=== PATIENT | male | born 1990 | race Hispanic/Latino ===

== ENCOUNTER 2022-10-07 17:56 | Emergency (ER) | payer BC ==
[~2022-10-07] VITALS: Ht 188 cm; Wt 106.6 kg
[2022-10-07 18:45] LABS: BASOPHILS % (AUTO) 0.4 % (0.0-5.0); EOSINOPHILS % (AUTO) 1.3 % (0.0-8.0); HEMATOCRIT 44.4 % (42-54); LYMPHOCYTES % (AUTO) 25.8 % (21.0-51.0); MEAN CORPUSCULAR HEMOGLOBIN 28.7 pg (27.0-33.0); MEAN CORPUSCULAR VOLUME 84.3 fL (79-99); MONOCYTES % (AUTO) 6.2 % (3.0-13.0); NEUTROPHILS % (AUTO) 65.9 % (40.0-77.0); PLATELET COUNT (AUTO) 265 K/uL (130-400); RED BLOOD CELL COUNT(AUTO) 5.27 MIL/uL (4.50-6.20); WHITE BLOOD COUNT (AUTO) 7.9 K/uL (4.8-10.8)
[2022-10-07 19:11] LABS: ALBUMIN 4.1 g/dL (3.5-5.0); POTASSIUM 3.8 mmol/L (3.5-5.1); TOTAL PROTEIN, SERUM 7.8 g/dL (6.0-8.3)
[2022-10-07 19:45] VITALS: BP 143/92
== END 2022-10-07 19:56 | disposition home or self-care (01) ==
LOC: EDH 17:56
DX: R07.89 Other chest pain (principal)
CPT/HCPCS: 36415; 71045; 80053; 83605; 84484; 85025; 93005

== ENCOUNTER 2022-11-01 17:43 | Emergency (ER) | payer BC ==
[2022-11-01 18:49] LABS: BASOPHILS % (AUTO) 0.5 % (0.0-5.0); EOSINOPHILS % (AUTO) 2.3 % (0.0-8.0); HEMATOCRIT 44.7 % (42-54); LYMPHOCYTES % (AUTO) 27.2 % (21.0-51.0); MEAN CORPUSCULAR HEMOGLOBIN 29.2 pg (27.0-33.0); MEAN CORPUSCULAR HGB CONC 34.2 g/dL (32.0-36.0); MEAN CORPUSCULAR VOLUME 85.3 fL (79-99); MONOCYTES % (AUTO) 6.5 % (3.0-13.0); NEUTROPHILS % (AUTO) 63.2 % (40.0-77.0); PLATELET COUNT (AUTO) 246 K/uL (130-400); RED BLOOD CELL COUNT(AUTO) 5.24 MIL/uL (4.50-6.20); RED CELL DISTRIBUTION WIDTH 12.9 % (11.0-15.5); WHITE BLOOD COUNT (AUTO) 6.1 K/uL (4.8-10.8)
[2022-11-01 19:04] LABS: CREATININE 0.9 mg/dL (0.5-1.5); POTASSIUM 3.9 mmol/L (3.5-5.1)
[2022-11-01 19:14] LABS: ALBUMIN 4.3 g/dL (3.5-5.0); TOTAL PROTEIN, SERUM 8.2 g/dL (6.0-8.3)
[2022-11-01 21:25] VITALS: BP 144/87
== END 2022-11-01 21:28 | disposition home or self-care (01) ==
LOC: EDH 17:43
DX: F41.9 Anxiety disorder, unspecified (principal); R07.9 Chest pain, unspecified; Z98.890 Other specified postprocedural states
CPT/HCPCS: 36415; 71045; 80053; 83605; 84484; 85025; 93005

== ENCOUNTER 2023-12-01 08:29 | Emergency (ER) | payer BC ==
[~2023-12-01] VITALS: Ht 188 cm; Wt 99.8 kg
[2023-12-01 08:35] VITALS: BP 157/82; PULSE 98; RESP 18; O2SAT 99
[2023-12-01] MEDS ORDERED: AMOX1TAB16 PO (09:01)
[2023-12-01] MEDS: DIPH,PERTUSS(ACELL),TET VAC/PF 0.5 ML VIAL IM ONE (09:34)
== END 2023-12-01 09:35 | disposition home or self-care (01) ==
LOC: EDH 08:29
DX: S81.831A Puncture wound without foreign body, right lower leg, initial encounter (principal); S81.832A Puncture wound without foreign body, left lower leg, initial encounter; Z98.890 Other specified postprocedural states; W54.0XXA Bitten by dog, initial encounter; Y93.89 Activity, other specified; Y92.89 Other specified places as the place of occurrence of the external cause; Y99.8 Other external cause status
CPT/HCPCS: 90471; 90715

== ENCOUNTER 2025-01-28 12:14 | Emergency (ER) | payer BC ==
[~2025-01-28] VITALS: Ht 188 cm; Wt 112.0 kg
[~2025-01-28 12:14] MED LIST: AMOX1TAB16 PO
--- NOTE | 2025-01-28 12:40 | NUR ---
PENDING GFR RESULTS, IV SITE, & CONSENT FOR CTA NECK
--- NOTE | 2025-01-28 12:50 | ERN ---
ED Note History of Present Illness Stated Complaint: NECK PAIN Chief Complaint: Neck Pain Time Seen by MD: 12:15 Time Seen by Midlevel: 12:15 Dictation: The Patient is a 34-year-old male with no significant past medical history who presents to the emergency department after being sent by his PCP for evaluation of left-sided neck pain for a week. Patient reports his provider is concerned with blocking of the carotid artery. Patient otherwise denies any neck trauma, denies any dizziness or any other complaints. 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 01/28/25 Amoxicillin/Potassium Clav (Amox Tr-K Clv 875-125 mg Tab) 875 Mg-125 Mg Tablet, 1 EACH PO BID for 7 Days, #14 TAB Prov:FREIDA COTTRELL DO 12/01/23 Past Medical History Past Medical History: No Pertinent History, Hypertension Additional Past Medical Hx: HEART MURMUR Surgical History: Other Surgical History Other: NOSE SX Social History: Negative, Lives with family RN Note Reviewed/Agreed w/PFSH: Yes Review of System Dictation Constitutional: Negative for fever,chills, and weight loss Eyes: Negative for injury, pain,redness, and discharge ENT: Negative for injury,pain or swelling positive for left-sided neck pain Cardiovascular: Negative for chest pain, palpitations, and edema Respiratory: Negative for shortness of breath, cough, and wheezing, Abdomen/GI: Negative for abdominal pain, nausea, vomiting, diarrhea, and constipation Back: Negative for injury and pain : Negative for injury, bleeding and discharge MS/Extremity: Negative for injury and deformity Skin: Negative for rash, and discoloration Neuro: Negative for headache, weakness, numbness, tingling, and seizure Psych: Negative for suicide ideation, homicidal ideation, and hallucinations Initial Vital Sign VS Vital Signs Date Time Temp Pulse Resp B/P (MAP) Pulse Ox O2 Delivery O2 Flow Rate FiO2 01/28/25 12:15 98.2 95 16 161/88 98 Room Air 01/28/25 12:20 0 21 Physical Exam Dictation Vital Signs reviewed General Appearance: Alert, oriented x 3, no acute distress, well developed, n ourished. Head and Face: non-traumatic. Eyes: PERRL, pink conjunctivas, eyelid no trauma, anterior chamber with arcus senilis. Ears: Pinnas intact and no signs of trauma or erythema ear canals clear and no discharge TM no erythema Nose: No discharge, no bleeding. Oropharynx: Mouth normal, tongue pink. pharynx clear,no erythema, tonsils no exudates, no abscesses noted, mucous m embrane moist Neck: Supple, non-tender, no thyromegaly, no masses, no JVD, no bruits Breast:Deferred Chest:No tenderness, no crepitus, no paradoxical movement, no retractions Lungs:Clear, well-ventilated, symmetric, no rales, no wheezing, no rhonchi, no stridor, good breath sounds bilaterally Heart: Regular rate, regular rhythm, no murmur, no gallops Vascular: no peripheral edema, Abdomen: Soft, positive bowel sounds, nondistended, no guarding, nontender, no rebound, no masses no hepatomegaly, no splenomegaly, no Sweeney's sign, no hernias. Rectal: Deferred Genital: Deferred Neurological: Normal speech, motor function intact, sensory function intact Musculoskeletal: Neck nontender, full range of motion, back nontender, full range of motion, Extremities: nontender, full range of motion Skin: Color pink, dry, no turgor, no rash, no lacerations, no abrasions, no contusions. Lymphatic: Deferred Results (Laboratory/Radiology) Laboratory/Radiology Laboratory Tests Test 01/28/25 12:44 White Blood Count 5.6 K/uL (4.8-10.8) Red Blood Count 4.76 MIL/uL (4.50-6.20) Hemoglobin 13.9 g/dL (14.0-18.0) L Hematocrit 40.7 % (42-54) L Mean Corpuscular Volume 85.5 fL (79-99) Mean Corpuscular Hemoglobin 29.2 pg (27.0-33.0) Mean Corpuscular Hemoglobin Concent 34.2 g/dL (32.0-36.0) Red Cell Distribution Width 12.7 % (11.0-15.5) Platelet Count 267 K/uL (130-400) Mean Platelet Volume 9.3 fL (7.5-10.5) Immature Granulocyte % (Auto) 0.2 % (0-1) Neutrophils (%) (Auto) 61.9 % (40.0-77.0) Lymphocytes (%) (Auto) 30.1 % (21.0-51.0) Monocytes (%) (Auto) 5.3 % (3.0-13.0) Eosinophils (%) (Auto) 2.1 % (0.0-8.0) Basophils (%) (Auto) 0.4 % (0.0-5.0) Neutrophils # (Auto) 3.5 K/uL (1.8-7.7) Lymphocytes # (Auto) 1.7 K/uL (1.0-4.8) Monocytes # (Auto) 0.3 K/uL (0.1-1.0) Eosinophils # (Auto) 0.12 K/uL (0.00-0.70) Basophils # (Auto) 0.02 K/uL (0.00-0.20) Absolute Immature Granulocyte (auto 0.01 K/uL (0-1) Nucleated Red Blood Cells 0.0 % (0.0-0.19) Sodium Level 139 mmol/L (136-145) Potassium Level 3.7 mmol/L (3.5-5.1) Chloride Level 103 mmol/L (101-111) Carbon Dioxide Level 28 mmol/L (21-32) Blood Urea Nitrogen 17 mg/dL (7-18) Creatinine 1.1 mg/dL (0.5-1.3) Glomerular Filtration Rate Calc 91 mL/min (>90) Random Glucose 118 mg/dL (70-105) H Total Calcium 8.5 mg/dL (8.5-10.1) REASON: r/o stenosis ORDERING PHYSICIAN: MEHDI MORA PROCEDURE: CTA NECWWO - CT ANGIO NECK EXAM: CTA Neck with and without Intravenous Contrast. CLINICAL HISTORY: r/o stenosis TECHNIQUE: Axial CTA images of the neck performed with and without intravenous contrast in the arterial phase. Coronal and sagittal reformatted images were generated and reviewed. 3-D reformatted images generated on an independent workstation were also reviewed. NASCET criteria were used in assessment of stenosis. CONTRAST: Contrast injected without incident. COMPARISON: None provided. FINDINGS: VASCULATURE: Internal carotid arteries: No stenosis by NASCET criteria. No dissection or occlusion. Common carotid arteries: No significant stenosis. No dissection or occlusion. External carotid arteries: Patent. Vertebral arteries: No significant stenosis. No dissection or occlusion. Soft tissues: No acute finding. Bones: No acute osseous abnormality. IMPRESSION: Unremarkable CTA of the neck. /[facility] Labs Reviewed?: Yes ED Course ED Course Orders Procedure Category Date Status Time Cbc With Differential LAB 01/28/25 Complete 12:33 Basic Metabolic Panel LAB 01/28/25 Complete 12:[address] 01/28/25 Resulted 12:33 Iohexol (Omnipaque) PHA 01/28/25 Complete 13:37 Current Medications Medications (Trade) Dose Ordered Sig/Cassie Route PRN Reason Start Time Stop Time Status Last Admin Dose Admin Iohexol (Omnipaque) 35,000 mg STK-MED ONCE IV 01/28/25 13:37 01/28/25 13:37 DC Vital Signs Date Time Temp Pulse Resp B/P (MAP) Pulse Ox O2 Delivery O2 Flow Rate FiO2 01/28/25 15:27 98.1 76 16 162/78 98 Room Air* 0 21 01/28/25 12:20 98.1 0 16 160/85 98 Room Air* 0 21 01/28/25 12:15 98.2 95 16 161/88 98 Room Air Medical Decision Making MDM The Patient is a 34-year-old male with no significant past medical history who presents to the emergency department after being sent by his PCP for evaluation of left-sided neck pain for a week. Patient reports his provider is concerned with blocking of the carotid artery. Patient otherwise denies any neck trauma, denies any dizziness or any other complaints. CBC showed no leukocytosis, mild normocytic anemia, chemistry showed no electrolyte imbalance, CT angio showed no stenosis. No other acute pathology. On physical exam patient is in no acute distress neurologically intact. Patient's symptoms could be musculoskeletal. Patient will be discharged to follow up with PCP. Differential diagnosis: Cardiac stenosis, cervical strain, pharyngitis Need for hospitalization: Patient does not meet criteria for hospitalization. There are no social concerns with this patient. DX & DISP Disposition: Discharge Departure Impression: Primary Impression: Neck pain Condition: Stable Scripts Cyclobenzaprine HCl (Flexeril) 10 Mg Tab 10 MG PO TID for muscle sstiffness, #14 TAB 0 Refills Prov: ABBYMEHDI BOSCH 01/28/25 Additional Instructions: Your labs were unremarkable. Your CT angio did not show any stenosis or any fractures. Please follow up with your primary doctor in 1-2 days. You can take ibuprofen as needed for pain. FOLLOW-UP WITH PRIMARY CARE PROVIDER IN 1 TO 2 DAYS. TAKE MEDICATIONS DIRECTED HERE IN THE EMERGENCY ROOM. OKAY TO CONTINUE HOME MEDICATIONS UNLESS OTHERWISE DISCUSSED DURING YOUR VISIT IN THE EMERGENCY ROOM TODAY. RETURN TO YOUR NEAREST EMERGENCY ROOM IF SYMPTOMS WORSEN OR IF THERE IS NO IMPROVEMENT. CALL 911 IF YOU NEED IMMEDIATE ASSISTANCE. TAKE TYLENOL [id number] NEEDED AND IF NO CONTRAINDICATIONS ARE PRESENT. INCREASE ORAL HYDRATION. A WOUND CULTURE OR URINE CULTURE WAS ORDERED HERE IN THE EMERGENCY ROOM DEPARTMENT PLEASE FOLLOW-UP WITH PRIMARY CARE PROVIDER AND ADVISE THEM TO GET REPEAT PORTS FROM OUR FACILITY. IF YOU HAD ANY KYLIE WRAP/SPLINTS THAT WERE APPLIED HERE, PLEASE DO NOT REMOVE THEM UNTIL YOU SEE YOUR PRIMARY CARE OR SPECIALTY. Referrals: PAOLA OSPINA (PCP) Time of Disposition: 15:16 I have reviewed the case, and I agree with, Diagnosis and Plan MEHDI MORA Jan 28, 2025 12:50 YUMIKO HERNANDEZ DO Jan 28, 2025 17:26
[2025-01-28 12:57] LABS: IMMATURE GRANULOCYTE ABSOLUTE 0.01 K/uL (0-1); NUCLEATED RED BLOOD CELLS 0.0 % (0.0-0.19); PLATELET COUNT (AUTO) 267 K/uL (130-400); RED BLOOD CELL COUNT(AUTO) 4.76 MIL/uL (4.50-6.20); RED CELL DISTRIBUTION WIDTH 12.7 % (11.0-15.5); WHITE BLOOD COUNT (AUTO) 5.6 K/uL (4.8-10.8)
[2025-01-28 13:06] LABS: CREATININE 1.1 mg/dL (0.5-1.3); GLOMERULAR FILTR. RATE CALC 91.0 mL/min (>90); GLUCOSE,RANDOM 118.0 mg/dL (70-105); SODIUM SERUM 139.0 mmol/L (136-145); UREA NITROGEN, BLOOD 17.0 mg/dL (7-18)
[2025-01-28] MEDS ORDERED: IOHEXOL 350 MG/ML 100ML INFUS..BTL IV ONE (13:37)
--- NOTE | 2025-01-28 14:48 | HMCIMG ---
EXAM: CTA Neck with and without Intravenous Contrast. CLINICAL HISTORY: r/o stenosis TECHNIQUE: Axial CTA images of the neck performed with and without intravenous contrast in the arterial phase. Coronal and sagittal reformatted images were generated and reviewed. 3-D reformatted images generated on an independent workstation were also reviewed. NASCET criteria were used in assessment of stenosis. CONTRAST: Contrast injected without incident. COMPARISON: None provided. FINDINGS: VASCULATURE: Internal carotid arteries: No stenosis by NASCET criteria. No dissection or occlusion. Common carotid arteries: No significant stenosis. No dissection or occlusion. External carotid arteries: Patent. Vertebral arteries: No significant stenosis. No dissection or occlusion. Soft tissues: No acute finding. Bones: No acute osseous abnormality. IMPRESSION: Unremarkable CTA of the neck. /[place]
[2025-01-28] MEDS ORDERED: CYCL10TA16 PO (15:17)
[2025-01-28 15:27] VITALS: BP 162/78; PULSE 76; RESP 16; TEMP 98.1; O2SAT 98
== END 2025-01-28 15:28 | disposition home or self-care (01) ==
LOC: EDH 12:14
DX: M54.2 Cervicalgia (principal); Z79.899 Other long term (current) drug therapy; Z98.890 Other specified postprocedural states
CPT/HCPCS: 99284; 70498; 80048; 85025; 36415; Q9967